=== PATIENT | male | born 1985 | race Caucasian/White ===

== ENCOUNTER 2021-05-26 14:07 | Inpatient (IN) | payer SELFPAY ==
[2021-05-26] MEDS ORDERED: ACETAMINOPHEN 500 MG TAB ONE (15:57)
--- NOTE | 2021-05-26 16:25 | RAD REPORT ---
EXAM DESCRIPTION: CT - Head Brain Wo Cont - 05/26/2021 4:12 pm CLINICAL HISTORY: headache, vomiting COMPARISON: No comparisons TECHNIQUE: Axial 5 mm thick images of the head were obtained without IV contrast. All CT scans are performed using dose optimization technique as appropriate and may include automated exposure control or mA/KV adjustment according to patient size. FINDINGS: No intracranial hemorrhage, mass, edema or shift of mid-line structures. No acute infarcti on changes seen. No abnormal extra-axial fluid collections. Ventricles are normal. Mastoid air cells and visualized portions of the paranasal sinuses are clear. No acute bony findings. IMPRESSION: Negative non-contrast CT head examination.
[2021-05-26] MEDS ORDERED: NA CHLORIDE 0.9% 1,000 ML ONE (16:27)
[2021-05-26] MEDS ORDERED: METOCLOPRAMIDE 10 MG/2mL INJ ONE (16:27)
--- NOTE | 2021-05-26 18:22 | EDPHYS ---
Physician Documentation [facility] Name: Maynor Saenz Age: 35 yrs Sex: Male : 1985 Arrival Date: 05/26/2021 Time: 14:20 Bed 15 Private MD: ED Physician Pete Suarez HPI: 05/26 15:56 This 35 yrs old Male presents to ER via Ambulatory with complaints of jmm Headache, Vomiting. 15:56 The patient complains of pain to the left temporal area. Onset: The symptoms/episode jmm began/occurred gradually, 1 day(s) ago. Associated signs and symptoms: Pertinent positives: vomiting. Headache History: The patient has had previous headaches and this one is similar to previous episodes. This is a 35-year-old male with no known chronic medical conditions presents emerge department with complaints of left-sided headache which was initially mild yesterday which developed increased intensity today along with nausea and vomiting. Patient denies diarrhea abdominal pain or cough. Historical: - Allergies: 15:27 No Known Allergies; kg - Home Meds: 15:27 None [Active]; kg - PMHx: 15:27 None; kg - PSHx: 15:27 Cholecystectomy; kg - Immunization history:: Adult Immunizations up to date, Client reports receiving the 2nd dose of the Covid vaccine, Date received: December 2020 [employer] Client reports receiving the 1st dose of the Covid vaccine, December 2020 [employer]. - Social history:: Smoking status: Patient denies any tobacco usage or history of. ROS: 15:56 Constitutional: Positive for body aches. jmm 15:56 Respiratory: Negative for cough, shortness of breath. 15:56 Abdomen/GI: Positive for nausea and vomiting, Negative for abdominal pain, diarrhea. 15:56 Neuro: Positive for headache. 15:56 All other systems are negative. Exam: 15:56 Constitutional: This is a well developed, well nourished patient who is awake, alert, jmm and in no acute distress. Head/Face: atraumatic. Eyes: EOMI, no conjunctival erythema appreciated ENT: Moist Mucus Membranes Neck: Trachea midline, Supple Chest/axilla: Normal chest wall appearance and motion. Cardiovascular: Regular rate and rhythm. No edema appreciated Respiratory: Normal respirations, no respiratory distress appreciated Abdomen/GI: Non distended, soft Back: Normal ROM Skin: General appearance color normal MS/ Extremity: Moves all extremities, no obvious deformities appreciated, no edema noted to the lower extremities Neuro: Awake and alert, normal gait Psych: Behavior is normal, Mood is normal, Patient is cooperative and pleasant 15:56 Abdomen/GI: Inspection: abdomen appears normal, Bowel sounds: normal, Palpation: abdomen is soft and non-tender, in all quadrants. Vital Signs: 15:26 BP 128 / 83; Pulse 121; Resp 20; Temp 102.8(O); Pulse Ox 98% on R/A; Weight 115.67 kg kg (R); Height 5 ft. 11 in. (180.34 cm) (R); Pain 4/10; 17:41 BP 126 / 74; Pulse 100; Resp 16 S; Temp 98.0(O); Pulse Ox 97% on R/A; iw 15:26 Body Mass Index 35.56 (115.67 kg, 180.34 cm) kg MDM: 15:40 Patient medically screened. jhon 18:20 Data reviewed: vital signs, nurses notes. Counseling: I had a detailed discussion with yokasta the patient and/or guardian regarding: the historical points, exam findings, and any diagnostic results supporting the discharge/admit diagnosis, lab results, radiology results, the need for outpatient follow up, to return to the emergency department if symptoms worsen or persist or if there are any questions or concerns that arise at home. ED course: Patient is alert nontoxic in appearance. Neck is supple. I do not suspect meningitis at this time. Patient is advised to follow-up with PCP and otherwise given strict return precautions. Patient understood and agrees to plan of care.. 23:29 ED course: I discussed the patient with Dr. Byrd who recommends observation with [facility] repeat labs. 05/26 15:31 Order name: Flu; Complete Time: 17:17 kg 05/26 16:56 Order name: SARS-COV-2 RT PCR; Complete Time: 17:17 [facility] 05/26 17:24 Order name: Day Screen Profile [facility] 05/26 17:24 Order name: Strep; Complete Time: 18:13 [facility] 05/26 17:24 Order name: CBC with Diff; Complete Time: 18:44 [facility] 05/26 17:24 Order name: CMP; Complete Time: 18:49 [facility] 05/26 17:24 Order name: Day Screen; Complete Time: 18:20 [facility] 05/26 18:15 Order name: Throat Culture [facility] 05/26 21:04 Order name: Pth,Intact; Complete Time: 23:30 [facility] 05/26 21:05 Order name: Hepatitis Panel [facility] 05/26 21:05 Order name: PT-INR; Complete Time: 23:11 [facility] 05/26 21:05 Order name: Hepatitis Panel,Acute [facility] 05/26 21:09 Order name: HIV AG/AB, 4th Gen W/ Reflex [facility] 05/26 15:56 Order name: Saline Lock; Complete Time: 16:13 [facility] 05/26 15:56 Order name: CT Head Brain wo Cont; Complete Time: 16:27 [facility] 05/26 18:50 Order name: US Abdomen Limited; Complete Time: 21:00 [facility] 05/27 03:36 Order name: Protime (+INR) [facility] 05/27 03:37 Order name: CBC with Automated Diff [facility] 05/27 04:19 Order name: Comprehensive Metabolic Panel [facility] 05/27 04:19 Order name: Lipid Profile [facility] 05/27 04:19 Order name: T4 Free [facility] 05/27 04:19 Order name: Magnesium [facility] 05/27 04:19 Order name: Thyroid Stimulating Hormone [facility] Administered Medications: 15:48 Drug: Tylenol 1000 mg Route: PO; iw 16:25 Drug: NS 0.9% 1000 ml Route: IV; Rate: 1 bolus; Site: left forearm; iw 16:25 Drug: Reglan (metoCLOPramide) 20 mg Route: IVP; Site: left forearm; iw Disposition: 05/28 08:10 Co-signature as Attending Physician, Pete Suarez MD I agree with the assessment and jhon plan of care. Disposition Summary: 05/26/21 23:30 Hospitalization Ordered Hospitalization Status: Observation jmm Condition: Stable(05/26/21 23:30) jmm Problem: new jmm Symptoms: are unchanged jmm Bed/Room Type: Standard jmm Provider: Marcelle Noel(05/27/21 00:56) jmm Location: Telemetry/MedSurg (observation)(05/27/21 10:08) bd Room Assignment: 209(05/27/21 10:08) bd Diagnosis - Acute viral hepatitis, unspecified jmm - Other infectious mononucleosis with other complication [facility] Forms: - Medication Reconciliation Form [facility] - SBAR form [facility] Signatures: Dispatcher [employer] EDMS Olga Blair Corey, MD MD cha Mickail, Joel, PA PA [facility] Kathy Rowell, RN RN iw John Luo, AUDIOPROSTHOLOGIST-C AUDIOPROSTHOLOGIST-Cla1 Jacinta Guerra, RN RN cg Yany Davila RN RN kg Corrections: (The following items were deleted from the chart) 05/26 15:55 15:32 CORONAVIRUS+MR.LAB.BRZ ordered. EDMS EDMS 18:48 18:22 Home [facility] 18:48 18:22 Stable [facility] 18:48 18:22 Infectious mononucleosis, unspecified without complication [facility] 05/27 00:56 05/26 23:30 Bryan Caballero [facility] 05/27 05:55 05/26 23:30 Telemetry/MedSurg (observation) [facility] 05/27 05:55 05/26 23:30 [facility] 05/27 10:08 05:55 [facility] ER HOLD cg bd 10:08 05:55 ERHOLD- cg bd
--- NOTE | 2021-05-26 18:22 | ER ---
Nurse's Notes [facility] Name: Maynor Saenz Age: 35 yrs Sex: Male : 1985 Arrival Date: 05/26/2021 Time: 14:20 Bed 15 Private MD: Diagnosis: Acute viral hepatitis, unspecified;Other infectious mononucleosis with other complication Presentation: 05/26 15:26 Chief complaint: Patient states: Nausea, vomiting, headache x 3 days. Coronavirus kg screen: Client denies travel out of the [place] in the last 14 days. At this time, unable to obtain information related to travel outside the [place] Client presents with at least one sign or symptom that may indicate coronavirus-19. Standard/surgical mask placed on the client. Provider contacted for isolation considerations. Ebola Screen: Patient negative for fever greater than or equal to 101.5 degrees Fahrenheit, and additional compatible Ebola Virus Disease symptoms Patient denies exposure to infectious person. Patient denies travel to an Ebola-affected area in the 21 days before illness onset. Initial Sepsis Screen: Does the patient meet any 2 criteria? No. Patient's initial sepsis screen is negative. Does the patient have a suspected source of infection? No. Patient's initial sepsis screen is negative. Risk Assessment: Do you want to hurt yourself or someone else? Patient reports no desire to harm self or others. Onset of symptoms was May 23, 2021. 15:26 Method Of Arrival: Ambulatory kg 15:26 Acuity: THO 4 kg 15:58 Acuity: THO 3 iw Triage Assessment: 15:27 Headache History: Denies prior headaches. General: Appears in no apparent distress. kg Behavior is calm, cooperative, appropriate for age, quiet. Pain: Complains of pain in Head Pain currently is 4 out of 10 on a pain scale. at worst was 6 out of 10 on a pain scale. Quality of pain is described as piercing, Pain began 2-3 days ago. Also complains of nausea. GI: Reports nausea, vomiting. Historical: - Allergies: 15:27 No Known Allergies; kg - Home Meds: 15:27 None [Active]; kg - PMHx: 15:27 None; kg - PSHx: 15:27 Cholecystectomy; kg - Immunization history:: Adult Immunizations up to date, Client reports receiving the 2nd dose of the Covid vaccine, Date received: December 2020 [employer] Client reports receiving the 1st dose of the Covid vaccine, December 2020 [employer]. - Social history:: Smoking status: Patient denies any tobacco usage or history of. Screenin:30 Abuse screen: Denies threats or abuse. Denies injuries from another. Nutritional kg screening: No deficits noted. Nutritional screening: No deficits noted. Tuberculosis screening: No symptoms or risk factors identified. Fall Risk None identified. Assessment: 16:43 Reassessment: Patient appears in no apparent distress at this time. Patient and/or iw family updated on plan of care and expected duration. Pain level reassessed. Patient is alert, oriented x 3, equal unlabored respirations, skin warm/dry/pink. Vital Signs: 15:26 BP 128 / 83; Pulse 121; Resp 20; Temp 102.8(O); Pulse Ox 98% on R/A; Weight 115.67 kg kg (R); Height 5 ft. 11 in. (180.34 cm) (R); Pain 4/10; 17:41 BP 126 / 74; Pulse 100; Resp 16 S; Temp 98.0(O); Pulse Ox 97% on R/A; iw 15:26 Body Mass Index 35.56 (115.67 kg, 180.34 cm) kg ED Course: 14:20 Patient arrived in ED. am2 15:27 Triage completed. kg 15:30 Patient has correct armband on for positive identification. kg 15:30 Antipyretic given from triage as ordered by the ER provider. Arm band placed on left kg wrist. 15:33 Gabo Santiago PA is PHCP. [facility] 15:33 Pete Suarez MD is Attending Physician. [facility] 15:33 Kathy Rowell, RN is Primary Nurse. iw 15:52 Flu Sent. kg 16:00 Inserted saline lock: 20 gauge in left forearm, using aseptic technique. Blood iw collected. 16:11 CT Head Brain wo Cont In Process Unspecified. EDMS 19:30 Primary Nurse role handed off by Kathy Rowell, RN mw2 19:31 US Abdomen Limited In Process Unspecified. EDMS 23:30 Bryan Caballero MD is Hospitalizing Provider. [facility] 05/27 00:21 Jairo Biggs, RN is Primary Nurse. em 00:21 No provider procedures requiring assistance completed. Patient admitted, IV remains in em place. 00:56 Marcelle Noel MD is Hospitalizing Provider. [facility] 08:37 Primary Nurse role handed off by Jairo Biggs RN Administered Medications: 05/26 15:48 Drug: Tylenol 1000 mg Route: PO; iw 16:25 Drug: NS 0.9% 1000 ml Route: IV; Rate: 1 bolus; Site: left forearm; 16:25 Drug: Reglan (metoCLOPramide) 20 mg Route: IVP; Site: left forearm; Outcome: 18:22 Discharge ordered by MD. [facility] 23:30 Decision to Hospitalize by Provider. [facility] 05/27 00:21 Admitted to ER Hold. Please see [facility] for further documentation. em Condition: stable Instructed on the need for admit, Demonstrated understanding of instructions. 10:50 Patient left the ED. ll1 Signatures: Dispatcher [employer] EDAgnieszka Thrasher RN RN Gabo Santiago PA PA [facility] Jairo Biggs, RN TALA Kathy Rowell RN RN Chery Reed 2 Al Puri 2 Do Garcia RN RN [facility] Yany Davila RN RN kg Corrections: (The following items were deleted from the chart) 05/26 15:55 15:52 CORONAVIRUS+MRIZABELA drawn and sent. kg [facility] 20:17 17:41 Temp 98.0F Oral; [facility]
[2021-05-26 18:31] LABS: Absolute Lymphocytes (CBC) 1.2 K/uL (0.7-4.9); Basophils % 0.2 % (0-1.3); Hematocrit 44.7 % (39.6-49.0); Lymphocytes % 10.1 % (15.3-44.8); MPV 8.1 fL (7.6-11.3); RBC Red Blood Cell Count 5.32 M/uL (4.33-5.43)
[2021-05-26 18:44] LABS: ALT/SGPT 272 U/L (12-78); Albumin 3.2 g/dL (3.4-5.0); Alkaline Phosphatase 342 U/L (45-117); BUN Blood Urea Nitrogen 8 mg/dL (7-18); Bicarbonate 22 mmol/L (21-32); Glucose Level 101 mg/dL (74-106); Protein, Total 8.2 g/dL (6.4-8.2); Sodium Level 137 mmol/L (136-145)
[2021-05-26 18:46] LABS: AST/SGOT 106 U/L (15-37); Potassium 3.6 mmol/L (3.5-5.1)
[2021-05-26 18:47] LABS: Bilirubin Total 6.4 mg/dL (0.2-1.0)
--- NOTE | 2021-05-26 20:56 | RAD REPORT ---
EXAM DESCRIPTION: US - Abdomen Exam Limited - 05/26/2021 7:32 pm CLINICAL HISTORY: vomiting, elevated bili and lfts COMPARISON: No comparisons FINDINGS: Gallbladder is absent. No mass or abnormal fluid collection in the gallbladder fossa. Comm on bile duct was difficult to visualize. No intrahepatic biliary tree dilatation suspected. No focal liver lesion identified. Portal vein was unremarkable. No abnormal biliary tree dilatation identifiab le. Common bile duct, as visualized, is not outside of normal range for post cholecystectomy status. Fatty infiltration of the liver is suspected. IMPRESSION: Status post cholecystectomy with no abnormal biliary tree dilatation identifiable.
[2021-05-26 23:05] LABS: Protime INR 1.23
--- NOTE | 2021-05-26 23:43 | P.HP ---
Certification for Inpatient Patient admitted to: Inpatient With expected LOS: >2 Midnights Patient will require the following post-hospital care: None Practitioner: I am a practitioner with admitting privileges, knowledge of patient current condition, hospital course, and medical plan of care. Services: Services provided to patient in accordance with Admission requirements found in Title 42 Section 412.3 of the Code of Federal Regulations <John Luo Tera Pace - Last Filed: 05/26/21 23:39> Patient History Date of Service: 05/26/21 Reason for admission: Acute hepatitis History of Present Illness: 35-year-old male with no significant past medical history presents emergency department for nausea, headache, fevers. Patient reports symptoms began on Thursday. Patient was evaluated in the emergency department, labs were significant for white blood cell count 11 point 9T bili 6.4 AST 106 ALT 272 alk phos 342 mono positive Covid negative, abdominal ultrasound demonstrates mildly enlarged spleen per laboratory mechanical technician, previous cholecystectomy without no other acute findings. Case was discussed with gastroenterology by ED provider who prefers admission for further evaluation including EBV IgG/IgM and hepatitis panel. Continue with IV fluids. - Past Medical/Surgical History -: None -: Cholecystectomy Psychosocial/ Personal History: Employed as a weight master lives with and children - Family History Father History Unknown: Yes Notes: Adopted unknown family history - Social History Alcohol use: No CD- Drugs: No Caffeine use: Yes Place of Residence: Home <John Luo Tera Pace - Last Filed: 05/26/21 23:39> Date of Service: 05/26/21 <Marcelle Noel - Last Filed: 06/03/21 02:49> Allergies No Known Allergies Allergy (Unverified 05/26/21 21:08) Review of Systems 10-point ROS is otherwise unremarkable General: Fever, Chills, Weakness, Malaise Gastrointestinal: Nausea <John Luo - Last Filed: 05/26/21 23:39> Physical Examination - Physical Exam General: Alert, In no apparent distress, Oriented x3 HEENT: Atraumatic, PERRLA, Mucous membr. moist/pink, EOMI, Sclerae nonicteric Neck: Supple, 2+ carotid pulse no bruit, No LAD, Without JVD or thyroid abnormality Respiratory: Clear to auscultation bilaterally, Normal air movement Cardiovascular: Regular rate/rhythm, Normal S1 S2 Gastrointestinal: Normal bowel sounds, No tenderness Musculoskeletal: No tenderness Integumentary: No rashes Neurological: Normal speech, Normal strength at 5/5 x4 extr, Normal tone, Normal affect - Studies Laboratory Data (last 24 hrs) 05/26/21 22:25: PT 14.2 H, INR 1.23 05/26/21 17:50: Sodium 137, Potassium 3.6, BUN 8, Creatinine 0.84, Glucose 101, Total Bilirubin 6.4 H*, AST 106 H, ALT 272 H, Alkaline Phosphatase 342 H 05/26/21 17:50: WBC 11.90 H, Hgb 15.0, Hct 44.7, Plt Count 313 Microbiology Data (last 24 hrs): 05/26/21 17:50 Throat Group A Streptococcus Rapid Screen - Final 05/26/21 15:20 Nasopharnyx Influenza Type A Antigen Screen - Final 05/26/21 15:20 Nasopharnyx Influenza Type B Antigen Screen - Final <John Luo - Last Filed: 05/26/21 23:39> Assessment and Plan - Plan Assessment: Acute hepatitis secondary to mononucleosis Plan: Acute hepatitis secondary to mononucleosis: Hepatitis, HIV panel pending, EBV IgG/IgM pending gastroenterology consulted continue with daily chemistries ultrasound negative for any acute findings did demonstrate mild enlarged spleen per laboratory mechanical technician. Appreciate further input from gastroenterology. DVT PPX: Lovenox Code status: Full Discharge Plan: Home Plan to discharge in: 48 Hours - Advance Directives Does patient have a Living Will: No Does patient have a Durable POA for Healthcare: No - Code Status/Comfort Care Code Status Assessed: Yes (Full code) Critical Care: No Time Spent Managing Pts Care (In Minutes): 55 <John Luo - Last Filed: 05/26/21 23:39> - Problems (Diagnosis) (1) Infectious mononucleosis Status: Acute (2) Acute hepatitis Status: Acute <Marcelle Noel - Last Filed: 06/03/21 02:49> Date of Service: 05/26/21 Subjective Agree with plan of care as mentioned above Review of Systems 10-point ROS is otherwise unremarkable Physical Examination - Vital Signs Reviewed - Physical Exam General: Alert, In no apparent distress, Oriented x3 Respiratory: Clear to auscultation bilaterally, Normal air movement Cardiovascular: Regular rate/rhythm, Normal S1 S2 Gastrointestinal: Normal bowel sounds, No tenderness Musculoskeletal: No tenderness Integumentary: No rashes Neurological: Normal speech, Normal tone, Normal affect Lymphatics: No axilla or inguinal lymphadenopathy Assessment & Plan - Problems (Diagnosis) (1) Infectious mononucleosis Status: Acute (2) Acute hepatitis Status: Acute - Plan Continue with plan of care as mentioned below: 1. Continue with IV hydration 2. Supportive care 3. Continue with pain control 4. Diet as tolerated 5. Outpatient GI follow-up 6. Outpatient labs 7. GI and DVT prophylaxis Discharge Plan: Home Plan to discharge in: Greater than 2 days - Advance Directives Does patient have a Living Will: No Does patient have a Durable POA for Healthcare: No - Code Status/Comfort Care Code Status Assessed: Yes Code Status: Full Code Critical Care: No Time Spent Managing PTS Care (In Minutes): 35 <Marcelle Noel - Last Filed: 06/03/21 02:49>
[2021-05-27] MEDS ORDERED: NA CHLORIDE 0.9% 1,000 ML IV SCH (02:13)
[2021-05-27] MEDS ORDERED: ONDANSETRON 4 MG/2 ML VIAL IV PRN (02:13)
[2021-05-27 03:27] LABS: Absolute Lymphocytes (CBC) 1.1 K/uL (0.7-4.9); Basophils % 0.3 % (0-1.3); Hematocrit 41.8 % (39.6-49.0); Lymphocytes % 12.5 % (15.3-44.8); MPV 7.6 fL (7.6-11.3); RBC Red Blood Cell Count 4.96 M/uL (4.33-5.43)
[2021-05-27 03:29] LABS: Protime INR 1.24
[2021-05-27 04:13] LABS: ALT/SGPT 235 U/L (12-78); AST/SGOT 80 U/L (15-37); Albumin 2.8 g/dL (3.4-5.0); Alkaline Phosphatase 319 U/L (45-117); BUN Blood Urea Nitrogen 7 mg/dL (7-18); Bicarbonate 30 mmol/L (21-32); Glucose Level 101 mg/dL (74-106); HDL Cholesterol 16 mg/dL (40-60); LDL Cholesterol, Calculated 108 (<130); Potassium 3.5 mmol/L (3.5-5.1); Protein, Total 7.7 g/dL (6.4-8.2); Sodium Level 138 mmol/L (136-145); Thyroid Stimulating Hormone 0.504 uIU/mL (0.360-3.740)
[2021-05-27 04:19] LABS: Bilirubin Total 5.6 mg/dL (0.2-1.0)
[2021-05-27] MEDS ORDERED: NA CHLORIDE 0.9% 1,000 ML ONE ×2 (04:57→07:54)
[2021-05-27 07:33] VITALS: BMI 35.5
[2021-05-27] MEDS ORDERED: ENOXAPARIN 40 MG/0.4 ML SQ ONE (07:53)
[2021-05-27] MEDS ORDERED: ENOXAPARIN 40 MG/0.4 ML SQ SCH (09:00)
[2021-05-27 11:09] VITALS: O2SAT 97
--- NOTE | 2021-05-27 11:45 | P.PN ---
Subjective Date of Service: 05/27/21 LFTs still significantly elevated. Patient with acute hepatitis secondary to mononucleosis. EBV titers pending. However, patient is wanting to go home and will reassess. Review of Systems 10-point ROS is otherwise unremarkable Physical Examination - Vital Signs Temperature: 99.2 F Blood Pressure: 110/76 Pulse: 80 Respirations: 16 Pulse Ox (%): 98 - Physical Exam General: Alert, In no apparent distress, Oriented x3 Respiratory: Clear to auscultation bilaterally, Normal air movement Cardiovascular: Regular rate/rhythm, Normal S1 S2 Gastrointestinal: Normal bowel sounds, No tenderness Musculoskeletal: No tenderness Integumentary: No rashes Neurological: Normal speech, Normal tone, Normal affect Lymphatics: No axilla or inguinal lymphadenopathy - Studies Laboratory Data (last 24 hrs) 05/26/21 22:25: PT 14.2 H, INR 1.23 05/26/21 17:50: Sodium 137, Potassium 3.6, BUN 8, Creatinine 0.84, Glucose 101, Total Bilirubin 6.4 H*, AST 106 H, ALT 272 H, Alkaline Phosphatase 342 H 05/26/21 17:50: WBC 11.90 H, Hgb 15.0, Hct 44.7, Plt Count 313 Microbiology Data (last 24 hrs): 05/26/21 17:50 Throat Group A Streptococcus Rapid Screen - Final 05/26/21 15:20 Nasopharnyx Influenza Type A Antigen Screen - Final 05/26/21 15:20 Nasopharnyx Influenza Type B Antigen Screen - Final Medications List Reviewed: Yes Assessment & Plan - Problems (Diagnosis) (1) Infectious mononucleosis Status: Acute (2) Acute hepatitis Status: Acute - Plan 1. Continue with IV hydration 2. Supportive care 3. Continue with pain control 4. Diet as tolerated 5. Outpatient GI follow-up 6. Outpatient labs 7. GI and DVT prophylaxis Discharge Plan: Home Plan to discharge in: Greater than 2 days - Advance Directives Does patient have a Living Will: No Does patient have a Durable POA for Healthcare: No - Code Status/Comfort Care Code Status Assessed: Yes Code Status: Full Code Critical Care: No Time Spent Managing PTS Care (In Minutes): 35
[2021-05-27 17:37] LABS: ALT/SGPT 224 U/L (12-78); AST/SGOT 71 U/L (15-37); Albumin 3.1 g/dL (3.4-5.0); Alkaline Phosphatase 352 U/L (45-117); BUN Blood Urea Nitrogen 7 mg/dL (7-18); Bicarbonate 29 mmol/L (21-32); Bilirubin Total 3.6 mg/dL (0.2-1.0); Glucose Level 79 mg/dL (74-106); Potassium 3.5 mmol/L (3.5-5.1); Protein, Total 8.6 g/dL (6.4-8.2); Sodium Level 137 mmol/L (136-145)
[2021-05-29 16:24] LABS: HIV AG/AB 4TH GEN Non-reactive (Non-reactive)
[2021-05-29 19:01] LABS: HBsAG Nonreactive (Nonreactive)
[2021-06-03 02:49] VITALS: BP 110/76; TEMP 99.2
--- NOTE | 2021-06-03 02:50 | P.DS ---
Discharge Date: 05/27/21 Disposition: ROUTINE DISCHARGE Discharge Condition: GOOD Reason for Admission: Acute hepatitis - Problems (1) Infectious mononucleosis Status: Acute (2) Acute hepatitis Status: Acute Brief History of Present Illness: 35-year-old male with no significant past medical history presents emergency department for nausea, headache, fevers. Patient reports symptoms began on Thursday. Patient was evaluated in the emergency department, labs were significant for white blood cell count 11 point 9T bili 6.4 AST 106 ALT 272 alk phos 342 mono positive Covid negative, abdominal ultrasound demonstrates mildly enlarged spleen per radiology nurse, previous cholecystectomy without no other acute findings. Case was discussed with gastroenterology by ED provider who prefers admission for further evaluation including EBV IgG/IgM and hepatitis panel. Continue with IV fluids. Hospital Course: Patient is clinically doing well. Patient without no new complaints. Clinically, patient is stable for discharge. Patient will need to follow with Gastroenterology and repeat liver enzymes. Vital Signs/Physical Exam: Temp Pulse Resp BP Pulse Ox 99.2 F 80 16 110/76 98 06/03/21 02:48 06/03/21 02:48 06/03/21 02:48 06/03/21 02:48 06/03/21 02:48 General: Alert, In no apparent distress, Oriented x3 Laboratory Data at Discharge: WBC Cancelled 05/28/21 05:00 Hgb Cancelled 05/28/21 05:00 Hct Cancelled 05/28/21 05:00 Plt Count Cancelled 05/28/21 05:00 PT Cancelled 05/28/21 05:00 INR Cancelled 05/28/21 05:00 Sodium 137 mmol/L (136-145) 05/27/21 17:11 Potassium 3.5 mmol/L (3.5-5.1) 05/27/21 17:11 BUN 7 mg/dL (7-18) 05/27/21 17:11 Creatinine 0.75 mg/dL (0.55-1.3) 05/27/21 17:11 Glucose 79 mg/dL (74-106) 05/27/21 17:11 Magnesium Cancelled 05/28/21 05:00 Total Bilirubin 3.6 mg/dL (0.2-1.0) H 05/27/21 17:11 AST 71 U/L (15-37) H 05/27/21 17:11 ALT 224 U/L (12-78) H 05/27/21 17:11 Alkaline Phosphatase 352 U/L (45-117) H 05/27/21 17:11 Triglycerides 109 mg/dL (<150) 05/27/21 02:58 Cholesterol 146 mg/dL (<200) 05/27/21 02:58 HDL Cholesterol 16 mg/dL (40-60) L 05/27/21 02:58 Cholesterol/HDL Ratio 9.13 05/27/21 02:58 Physician Discharge Instructions: OK TO DC IV AND DC HOME FOLLOW-UP WITH PRIMARY CARE PROVIDER IN 1-2 WEEKS FOLLOW-UP WITH Gastroenterology IN 1-2 WEEKS RETURN TO THE ER IF symptoms worsen CALL or TEXT DR. APARICIO AT [phone] IF ANY QUESTIONS REGARDING HOSPITAL STAY. PLEASE CALL THE FLOOR AT [phone] IF ANY MEDICATION OR NURSING QUESTIONS. Diet: Regular Activity: Fall precautions Followup: NONE,NONE [Primary Care Provider] - Aayush Schwartz MD [ASSOCIATE-ACTIVE - CAN ADMIT] - Time spent managing pt's care (in minutes): 35
== END 2021-05-27 19:35 | disposition home or self-care (01) | DRG 866 ==
LOC: ER 14:07 → ERHOLD 23:24 → 2ND 05-27 10:37
PROVIDERS: ADMIT Hospitalist; ATTEND Hospitalist
DX: B27.89 Other infectious mononucleosis with other complication (principal); B17.9 Acute viral hepatitis, unspecified; Z20.822 Contact with and (suspected) exposure to COVID-19
CPT/HCPCS: 36415; 70450; 76705; 80053; 80061; 80074; 83735; 83970; 84439; 84443; 85025; 85610; 86308; 86664; 86665; 87070; 87081; 87389; 87804; 96374; 99285; J1650; J2765; J7030; U0003

== ENCOUNTER 2021-06-10 17:35 | Emergency (ER) | payer SELFPAY ==
--- NOTE | 2021-06-10 23:08 | ER ---
Nurse's Notes [facility] Name: Maynor Saenz Age: 35 yrs Sex: Male : 1985 Arrival Date: 06/10/2021 Time: 17:42 Bed External Waiting [facility] MD: Diagnosis: Presentation: 06/10 18:04 Chief complaint: Patient states: Diagnosed with mono about 2 weeks ago. Still has high ll1 fever, fatigue, and bad symptoms. Fever 105.4 at home. No N/V/D. No appetite still. Coronavirus screen: Vaccine status: Patient reports receiving the 2nd dose of the covid vaccine. Date March 14, 2021 Client denies travel out of the [place] in the last 14 days. Ebola Screen: Patient denies travel to an Ebola-affected area in the 21 days before illness onset. No acute neurological deficit is noted. Initial Sepsis Screen: Does the patient meet any 2 criteria? No. Patient's initial sepsis screen is negative. Does the patient have a suspected source of infection? No. Patient's initial sepsis screen is negative. Risk Assessment: Do you want to hurt yourself or someone else? Patient reports no desire to harm self or others. Onset of symptoms was May 26, 2021. 18:04 Method Of Arrival: Ambulatory ll1 18:04 Acuity: THO 3 ll1 Stroke Activation: Symptom onset > 6 hours Physician: Stroke Attending; Name: ; Notified At: ; Arrived At: Physician: Chief Stroke Resident; Name: ; Notified At: ; Arrived At: Physician: Stroke Resident; Name: ; Notified At: ; Arrived At: Physician: ED Attending; Name: ; Notified At: ; Arrived At: Physician: ED Resident; Name: ; Notified At: ; Arrived At: Historical: - Allergies: 18:09 No Known Allergies; ll1 - PMHx: 18:09 mono; ll1 - PSHx: 18:09 Cholecystectomy; ll1 - Immunization history:: Client reports receiving the 2nd dose of the Covid vaccine, Flu vaccine is up to date. Last tetanus immunization: up to date. - Social history:: Smoking status: Smoking status: Patient denies any tobacco usage or history of. Vital Signs: 18:04 BP 106 / 68; Resp 20; Temp 103.0; Weight 112.94 kg; Height 5 ft. 11 in. (180.34 cm); ll1 Pain 0/10; 18:11 Pulse 126; Pulse Ox 96% ; ll1 20:47 BP 117 / 74; Pulse 119; Resp 20; Pulse Ox 100% ; kg 18:04 Body Mass Index 34.73 (112.94 kg, 180.34 cm) ll1 ED Course: 17:42 Patient arrived in ED. as 18:04 Arm band placed on. ll1 18:09 Triage completed. ll1 Administered Medications: No medications were administered Outcome: 23:08 Patient left the ED. kg Signatures: Regina Putnam Lynsay, RN RN ll1 Yany Davila RN RN kg
[2021-06-10 23:17] VITALS: TEMP 103
[2021-06-10 23:20] VITALS: BP 117/74; O2SAT 100
== END 2021-06-10 23:08 | disposition left against medical advice (07) ==
LOC: ER 17:35
DX: Z53.21 Procedure and treatment not carried out due to patient leaving prior to being seen by health care provider (principal)
CPT/HCPCS: 99281

== ENCOUNTER 2021-08-02 17:54 | Emergency (ER) | payer SELFPAY ==
[2021-08-02] MEDS ORDERED: NA CHLORIDE 0.9% 3,000 ML ONE (18:55)
[2021-08-02 18:57] LABS: Absolute Lymphocytes (CBC) 1.4 K/uL (0.7-4.9); Basophils % 0.5 % (0-1.3); Hematocrit 31.9 % (39.6-49.0); Lymphocytes % 6.1 % (15.3-44.8); MPV 8.2 fL (7.6-11.3); Protime INR 1.78; RBC Red Blood Cell Count 3.99 M/uL (4.33-5.43)
[2021-08-02] MEDS ORDERED: CEFTRIAXONE 1000 MG/VIAL ONE (19:12)
[2021-08-02 19:16] LABS: ALT/SGPT 29 U/L (12-78); AST/SGOT 57 U/L (15-37); Albumin 1.5 g/dL (3.4-5.0); Alkaline Phosphatase 411 U/L (45-117); BUN Blood Urea Nitrogen 16 mg/dL (7-18); Bicarbonate 34 mmol/L (21-32); Bilirubin Direct 1.2 mg/dL (0-0.2); Bilirubin Total 1.7 mg/dL (0.2-1.0); CKMB Creatine Kinase MB < 1.0 ng/mL (1.0-3.6); Creatine Phosphokinase 30 U/L (39-308); Glucose Level 132 mg/dL (74-106); Lipase 40 U/L (73-393); Protein, Total 8.2 g/dL (6.4-8.2); Sodium Level 135 mmol/L (136-145); Troponin (Emerg Dept Use Only) < 0.02 ng/mL (0.0-0.045)
[2021-08-02 19:17] LABS: Potassium 2.3 mmol/L (3.5-5.1)
--- NOTE | 2021-08-02 19:55 | RAD REPORT ---
EXAM DESCRIPTION: RAD - Chest Single View - 08/02/2021 6:45 pm CLINICAL HISTORY: MD discretion, shortness of breath COMPARISON: None TECHNIQUE: AP portable chest image was obtained 08/02/2021 6:45 pm . FINDINGS: Lung volumes are low but clear of mass or consolidation. Body habitus and shallow inspirat ion accentuate the interstitial pattern. Heart and vasculature are normal. No measurable pleural effu sixto and no pneumothorax. No acute bony abnormality seen. No acute aortic findings suspected. IMPRESSION: No acute cardiopulmonary process.
[2021-08-02 19:57] LABS: Blood Morphology Comment NOT SEEN (NOT SEEN); Platelet Estimate INCR; Platelets, Giant PRESENT
[2021-08-02] MEDS ORDERED: ACETAMINOPHEN 325 MG TABLET ONE (20:27)
[2021-08-02] MEDS ORDERED: KCL 20 MEQ/100 mL IVPB 20 MEQ/100 ML BAG IV ONE (20:27)
[2021-08-02] MEDS ORDERED: NA CHLORIDE 0.9% 500 ML ONE (20:31)
--- NOTE | 2021-08-02 20:43 | RAD REPORT ---
EXAM DESCRIPTION: CT - Abdomen Pelvis W Contrast - 08/02/2021 8:00 pm CLINICAL HISTORY: ABD PAIN COMPARISON: Abdomen Exam Limited dated 05/26/2021; Chest For Pe Angio dated 08/02/2021 TECHNIQUE: Biphasic, helical CT imaging of the abdomen and pelvis was performed following 100 ml non -ionic IV contrast. Axial 10 minutes delayed images also performed. No oral contrast administered. All CT scans are performed using dose optimization technique as appropriate and may include automated exposure control or mA/KV adjustment according to patient size. FINDINGS: No suspicious findings in the lung bases. The liver is grossly abnormal. Overall liver size is prominent. There is a very large [address] area of abnormally diminished attenuation occupying the majority of the left hepatic lobe in the anterior portion of the right hepatic lobe. This may be a single large mass or the confluence of nume wei low-density masses. An additional 4 centimeter low-density area is present in the posteromedial right lobe. This liver abnormality was not evident on May 26 ultrasound study. There is little if any identifiable enhancement within or along the periphery of the liver mass. The mass partially fill s in on 10 minutes delayed imaging. Cholecystectomy clips are present. No abnormal biliary tree dilat ation identified. No pancreatic mass or peripancreatic acute finding seen. There is an elongated tubular structure in t he third and fourth portions of the duodenum. This is possibly a biliary stent that has migrated into the duodenum. There may be a small component still within the distal common bile duct. Symmetric renal function is seen with no hydronephrosis or suspicious renal mass. No pyelonephritis o r acute parenchymal process. Urinary bladder is fully contracted. No adrenal abnormalities. No dilated bowel loops or bowel wall thickening. No acute GI findings seen. No free air or pneumatosi s. Trace amount of free intraperitoneal fluid is present. No hernia, mass or bulky lymphadenopathy. No suspicious bony findings. IMPRESSION: Grossly abnormal liver with a large 18 x 10 cm area of abnormal attenuation filling most of the left lobe and anterior right lobe of the liver. Gallbladder is absent and the biliary tree is not abnormally dilated. There appears be an old biliary stent in the third and fourth portions of the duodenum. Small portion may or many neck within the bi liary tree. No similar mass visible on the May ultrasound study. Hepatocellular carcinoma or cholangiocarcinom a would be differential considerations. Findings are not sufficient for giant hemangioma etiology con firmation. Large complex of liver abscesses unlikely.
--- NOTE | 2021-08-02 20:45 | RAD REPORT ---
EXAM DESCRIPTION: CT - Chest For Pe Angio - 08/02/2021 8:00 pm CLINICAL HISTORY: SOB COMPARISON: No comparisons TECHNIQUE: Dynamically enhanced 2 mm thick images of the chest were obtained during administration o f approximately 150mL Isovue 370 IV contrast. Coronal and oblique MIP reconstruction images were gene rated and reviewed. Exam utilizes a protocol to evaluate the pulmonary arterial tree. All CT scans are performed using dose optimization technique as appropriate and may include automated exposure control or mA/KV adjustment according to patient size. FINDINGS: No pulmonary emboli are identified. The aorta as imaged shows no acute or suspicious finding. No pericardial thickening or effusion. No infiltrate or mass in the lung parenchyma. No pleural effusion or pleural thickening. No mediastinal or hilar suspicious masses. No chest wall masses or abnormal axillary lymphadenopathy. Limited upper abdomen imaging shows very large liver lesion. This is detailed in separate CT abdomen pelvis report. IMPRESSION: No pulmonary emboli identified. No other significant or suspicious chest findings.
--- NOTE | 2021-08-02 20:46 | RAD REPORT ---
EXAM DESCRIPTION: CT - Head Brain Wo Cont - 08/02/2021 8:00 pm CLINICAL HISTORY: Near syncope COMPARISON: Head Brain Wo Cont dated 05/26/2021 TECHNIQUE: Axial 5 mm thick images of the head were obtained without IV contrast. All CT scans are performed using dose optimization technique as appropriate and may include automated exposure control or mA/KV adjustment according to patient size. FINDINGS: No intracranial hemorrhage, mass, edema or shift of mid-line structures. No acute infarcti on changes seen. No abnormal extra-axial fluid collections. Ventricles are normal. Mastoid air cells and visualized portions of the paranasal sinuses are clear. No acute bony findings. No significant change comparison. IMPRESSION: Negative non-contrast CT head examination.
[2021-08-02] MEDS ORDERED: VANCOMYCIN 1 GM/VIAL ONE (22:00)
[2021-08-02] MEDS ORDERED: NA CHLORIDE 0.9% 250 ML ONE (22:01)
--- NOTE | 2021-08-02 22:50 | EDPHYS ---
Physician Documentation [facility] Name: Maynor Saenz Age: 35 yrs Sex: Male : 1985 Arrival Date: 08/02/2021 Time: 17:55 Bed 7 Private MD: ED Physician Missael Mistry HPI: 08/02 18:16 This 35 yrs old Male presents to ER via Wheelchair with complaints of ma2 Shortness Of Breath, Weakness. 18:16 The patient has shortness of breath at rest. Onset: The symptoms/episode began/occurred ma2 gradually, 1 month(s) ago. Associated signs and symptoms: Pertinent positives: Pertinent negatives: productive cough, dizziness, hemoptysis, loss of consciousness, numbness in extremities. Severity of symptoms: At their worst the symptoms were moderate in the emergency department the symptoms are unchanged. The patient has not experienced similar symptoms in the past. had multiple syncopies today, has been having weakness, sob and decrease po intake for a month, diagnosed with mono neucleosis . Historical: - Allergies: 18:01 No Known Allergies; ll1 - Home Meds: 20:54 None [Active]; df1 - PMHx: 18:01 mono; ll1 - PSHx: 18:01 Cholecystectomy; ll1 - Immunization history:: Client reports receiving the 2nd dose of the Covid vaccine. - Social history:: Smoking status: Patient denies any tobacco usage or history of. - Family history:: not pertinent. ROS: 18:16 Constitutional: Negative for fever, chills, and weight loss. ma2 18:16 All other systems are negative. Exam: 18:16 Constitutional: This is a well developed, awake, alert, however looks dehydrated and ma2 weak Head/Face: Normocephalic, atraumatic. Eyes: Pupils equal round and reactive to light, extra-ocular motions intact. Lids and lashes normal. Conjunctiva and sclera are non-icteric and not injected. Cornea within normal limits. Periorbital areas with no swelling, redness, or edema. ENT: Nares patent. No nasal discharge, no septal abnormalities noted. Tympanic membranes are normal and external auditory canals are clear. Oropharynx with no redness, swelling, or masses, exudates, or evidence of obstruction, uvula midline. Mucous membranes moist. Neck: Trachea midline, no thyromegaly or masses palpated, and no cervical lymphadenopathy. Supple, full range of motion without nuchal rigidity, or vertebral point tenderness. No Meningismus. Chest/axilla: Normal chest wall appearance and motion. Nontender with no deformity. No lesions are appreciated. Cardiovascular: Regular rate and rhythm with a normal S1 and S2. No gallops, murmurs, or rubs. Normal PMI, no JVD. No pulse deficits. Respiratory: Lungs have equal breath sounds bilaterally, clear to auscultation and percussion. No rales, rhonchi or wheezes noted. No increased work of breathing, no retractions or nasal flaring. Abdomen/GI: diffusely tender, with normal bowel sounds. No distension or tympany. No guarding or rebound. Back: No spinal tenderness. No costovertebral tenderness. Full range of motion. Skin: Warm, dry with normal turgor. Normal color with no rashes, no lesions, and no evidence of cellulitis. MS/ Extremity: Pulses equal, no cyanosis. Neurovascular intact. Full, normal range of motion. Neuro: Awake and alert, GCS 15, oriented to person, place, time, and situation. Cranial nerves II-XII grossly intact. Motor strength 5/5 in all extremities. Sensory grossly intact. Cerebellar exam normal. Normal gait. Vital Signs: 17:58 Pulse 109; Resp 24; Temp 97.8; Pulse Ox 100% ; Weight 102.06 kg; Height 5 ft. 10 in. ll1 (177.80 cm); Pain 7/10; 18:01 BP 87 / 50; ll1 18:53 BP 111 / 68; Pulse 109; Resp 26; Pulse Ox 97% on 2 lpm NC; ap3 21:18 BP 100 / 54; Pulse 99; Resp 24; Temp 97.7(O); Pulse Ox 97% on 2 lpm NC; df1 17:58 Body Mass Index 32.28 (102.06 kg, 177.80 cm) ll1 MDM: 18:16 Patient medically screened. ma2 18:16 Differential diagnosis: Anemia asthma, pneumonia, reactive airway disease, Sepsis. ma2 22:47 Data reviewed: vital signs, nurses notes, EMS record, lab test result(s), amylase and mh7 lipase, cardiac enzymes, CBC, electrolytes, urinalysis, EKG, radiologic studies, CT scan, plain films. Data interpreted: Pulse oximetry: on room air is 97 %. Interpretation: normal. Counseling: I had a detailed discussion with the patient and/or guardian regarding: the historical points, exam findings, and any diagnostic results supporting the discharge/admit diagnosis, lab results, radiology results, the need to transfer to another facility, for higher level of care, [facility] does not immediately have the required specialist. Response to treatment: the patient's symptoms have markedly improved after treatment. 22:47 Physician consultation: Anuel Tolliver MD after a discussion of the case, a recommendation [facility] for transfer for higher level of care is made. 08/02 18:04 Order name: Basic Metabolic Panel; Complete Time: 19:19 ma2 08/02 18:04 Order name: CBC with Diff; Complete Time: 20:18 ma2 08/02 18:04 Order name: CPK; Complete Time: 19:19 ma2 08/02 18:04 Order name: Ckmb; Complete Time: 19:19 ma2 08/02 18:04 Order name: Hepatic Function; Complete Time: 19:19 ma2 08/02 18:04 Order name: Lipase; Complete Time: 19:19 ma2 08/02 18:04 Order name: Magnesium; Complete Time: 19:19 ma2 08/02 18:04 Order name: Protime (+inr); Complete Time: 19:29 ma2 08/02 18:04 Order name: Ptt, Activated; Complete Time: :29 ma2 08/02 18:04 Order name: Troponin (emerg Dept Use Only); Complete Time: 19:19 ma2 08/02 18:14 Order name: Amylase, Serum aa08/02 18:14 Order name: Blood Culture Adult (2) aa08/02 18:14 Order name: Lactate; Complete Time: 19:19 aa5 08/02 18:14 Order name: Procalcitonin; Complete Time: 19:50 aa5 08/02 18:14 Order name: Chest Single View XRAY; Complete Time: 20:18 aa5 08/02 18:14 Order name: Amylase; Complete Time: 19:13 EDMS 08/02 18:14 Order name: Blood Culture EDWI 08/02 18:38 Order name: Glucose, Ancillary Testing; Complete Time: 19:13 EDMS 08/02 19:17 Order name: COVID-19 SARS RT PCR (Document "Date of Onset" if Symptomatic); Complete aa5 Time: 20:58 08/02 19:56 Order name: Manual Differential; Complete Time: 20:18 EDMS 08/02 18:04 Order name: EKG; Complete Time: 18:05 ma2 08/02 18:04 Order name: Cardiac monitoring; Complete Time: 18:08 pr2 08/02 18:04 Order name: EKG - Nurse/Tech; Complete Time: 19:03 ma2 08/02 18:04 Order name: IV Saline Lock; Complete Time: 18:36 ma2 08/02 18:04 Order name: Labs collected and sent; Complete Time: 18:36 ma2 08/02 18:04 Order name: NPO; Complete Time: 18:08 ma2 08/02 18:04 Order name: O2 Per Protocol; Complete Time: 18:08 pr2 08/02 18:04 Order name: O2 Sat Monitoring; Complete Time: 18:08 pr2 08/02 18:15 Order name: Accucheck; Complete Time: 18:35 ma2 08/02 18:15 Order name: IV Saline Lock - Large Bore; Complete Time: 18:35 ma2 08/02 18:15 Order name: CT Abd/Pelvis - IV Contrast Only; Complete Time: 21:18 ma2 08/02 19:27 Order name: CT Head Brain wo Cont; Complete Time: 20:58 mh7 08/02 19:31 Order name: CT Chest For PE Angio; Complete Time: 20:58 mh7 Administered Medications: 18:33 Drug: NS 0.9% 1000 ml Route: IV; Rate: 1 bolus; Site: left antecubital; ap3 18:34 Drug: NS 0.9% 2000 ml Route: IV; Rate: 1 bolus; Site: right antecubital; ap3 18:50 Drug: Rocephin (cefTRIAXone) 1 grams Route: IV; Rate: calculated rate; Site: left ap3 antecubital; 21:45 Follow up: IV Status: Completed infusion df1 20:30 Drug: Tylenol 650 mg Route: PO; df1 21:44 Follow up: Response: Temperature is decreased df1 20:31 Drug: Potassium Chloride 20 mEq Route: IV; Rate: per protocol; Site: right antecubital; df1 21:44 Drug: vancoMYCIN 1 grams Route: IVPB; Infused Over: 2 hrs; Site: left antecubital; df1 08/03 00:12 Follow up: IV Status: Completed infusion; IV Intake: 200ml df1 00:12 Not Given (pt transferedd): Potassium Chloride 20 mEq IV at per protocol once; df1 administer over 1-2 hours Disposition Summary: 08/02/21 22:49 Transfer Ordered Transfer Location: [place] [id number] Reason: Higher level of care mh7 Condition: Stable mh7 Problem: new mh7 Symptoms: have improved mh7 Accepting Physician: Dr. Leal(08/03/21 00:14) df1 Diagnosis - Sepsis, unspecified organism mh7 - Liver disease, unspecified - Possible abscesses mh7 - Hypokalemia 7 Forms: - Medication Reconciliation Form 7 - SBAR form 7 Signatures: Dispatcher [employer] EDMS Mary Mishra RN RN aa5 John Luo, CABLE FORMER-C CABLE FORMER-Cla1 Marcelle Valenzuela MD MD ma2 Chery Fontanez RN RN ap3 Do Garcia RN RN ll1 Missael Mistry MD MD mh7 Fany Leong df1 Corrections: (The following items were deleted from the chart) 08/02 18:04 18:04 Urine Test ordered. ma2 aa5 18:35 18:14 Accucheck ordered. aa5 iw 18:36 18:14 IV Saline Lock - Large Bore ordered. aa5 iw 18:42 18:15 Chest Single View+RAD.RAD.BRZ ordered. EDMS EDMS 20:18 19:35 Shoulder Left 2 View+RAD.RAD.BRZ ordered. EDMS EDMS 08/03 00:14 08/02 22:49 Dr. Leal mh7 df1
--- NOTE | 2021-08-02 22:50 | ER ---
Nurse's Notes [facility] Name: Maynor Saenz Age: 35 yrs Sex: Male : 1985 Arrival Date: 08/02/2021 Time: 17:55 Bed 7 Private MD: Diagnosis: Sepsis, unspecified organism;Liver disease, unspecified-Possible abscesses;Hypokalemia Presentation: 08/02 17:58 Chief complaint: Patient states: Syncope episode at home today. Very weak, lethargic, ll1 and SOB. States he knows mono for at least a month. Coronavirus screen: Vaccine status: Patient reports receiving the 2nd dose of the covid vaccine. Client denies travel out of the [place] in the last 14 days. cough unrelated to allergies, difficulty breathing, fatigue, headache, shortness of breath, Client presents with at least one sign or symptom that may indicate coronavirus-19. Ebola Screen: Patient denies travel to an Ebola-affected area in the 21 days before illness onset. Initial Sepsis Screen: Does the patient meet any 2 criteria? RR > 20 per min. No. Patient's initial sepsis screen is negative. Does the patient have a suspected source of infection? Yes: Other: mono. Risk Assessment: Do you want to hurt yourself or someone else? Patient reports no desire to harm self or others. Onset of symptoms was July 03, 2021. 17:58 Method Of Arrival: Wheelchair ll1 17:58 Acuity: TOH 2 ll1 Triage Assessment: 18:57 Respiratory: Onset: The symptoms/episode began/occurred gradually, the patient has ap3 moderate shortness of breath. Historical: - Allergies: 18:01 No Known Allergies; ll1 - Home Meds: 20:54 None [Active]; df1 - PMHx: 18:01 mono; ll1 - PSHx: 18:01 Cholecystectomy; ll1 - Immunization history:: Client reports receiving the 2nd dose of the Covid vaccine. - Social history:: Smoking status: Patient denies any tobacco usage or history of. - Family history:: not pertinent. Screenin:56 Abuse screen: Denies threats or abuse. Nutritional screening: patient has been ill for ap3 greater than 2 weeks. Tuberculosis screening: No symptoms or risk factors identified. Fall Risk No fall in past 12 months (0 pts). No secondary diagnosis (0 pts). IV access (20 points). Ambulatory Aid- None/Bed Rest/Nurse Assist (0 pts). Gait- Weak (10 pts.). Mental Status- Oriented to own ability (0 pts). Total Lee Fall Scale indicates Low Risk Score (25-44 pts). Fall prevention measures have been instituted. Side Rails Up X 2 Placed close to Nursing Station Frequent Obs/Assesments occuring. Assessment: 18:01 General: Appears distressed, Behavior is flat. Pain: Denies pain. Neuro: Level of ap3 Consciousness is lethargic, Oriented to person, place, Stylist Apprentice are weak bilaterally Weakness Gait is unsteady, Speech whisper. Neuro: Reports dizziness, a syncopal episode. Cardiovascular: Rhythm is sinus tachycardia. Cardiovascular: Capillary refill is sluggish in bilateral toes. Respiratory: Airway is patent Respiratory effort is labored, Breath sounds are diminished bilaterally. Derm: Skin is pale. 18:53 Reassessment: Patient and/or family updated on plan of care and expected duration. Pain ap3 level reassessed. Patient is alert, oriented x 3, equal unlabored respirations, skin warm/dry/pink. 20:36 Reassessment: Pt complain of potassium burning, decreased rate to 25 ml/hour. dc2 22:06 GI: Abdomen is flat, non-distended, Bowel sounds present X 4 quads. Abdomen is tender df1 to palpation X 4 quads. : No deficits noted. EENT: No deficits noted. Musculoskeletal: No deficits noted. Vital Signs: 17:58 Pulse 109; Resp 24; Temp 97.8; Pulse Ox 100% ; Weight 102.06 kg; Height 5 ft. 10 in. ll1 (177.80 cm); Pain 7/10; 18:01 BP 87 / 50; ll1 18:53 BP 111 / 68; Pulse 109; Resp 26; Pulse Ox 97% on 2 lpm NC; ap3 21:18 BP 100 / 54; Pulse 99; Resp 24; Temp 97.7(O); Pulse Ox 97% on 2 lpm NC; df1 17:58 Body Mass Index 32.28 (102.06 kg, 177.80 cm) ll1 ED Course: 17:55 Patient arrived in ED. as 18:01 Triage completed. ll1 18:01 Arm band placed on Patient placed in an exam room, on a stretcher. ll1 18:04 Marcelle Valenzuela MD is Attending Physician. ma2 18:12 Chery Fontanez, TALA is Primary Nurse. ap3 18:25 Inserted saline lock: 22 gauge in right antecubital area, using aseptic technique. aa5 18:25 Initial lab(s) drawn, by ED staff, sent to lab. First set of blood cultures drawn. aa5 Inserted saline lock: 22 gauge in left hand, using aseptic technique. 18:25 Second set of blood cultures drawn by me. iw 18:45 Chest Single View XRAY In Process Unspecified. EDMS 18:57 Patient has correct armband on for positive identification. Bed in low position. Call ap3 light in reach. Side rails up X2. Adult w/ patient. groundwater monitoring technician on. Pulse ox on. NIBP on. Door closed. Noise minimized. 19:03 Placed in gown. Warm blanket given. Pillow given. mh5 19:03 EKG done, by ED staff, reviewed by Marcelle Valenzuela MD. mh5 19:05 Attending Physician role handed off by Marcelle Valenzuela MD mh7 19:05 Missael Mistry MD is Attending Physician. mh7 19:11 Amylase, Serum Sent. aa5 19:11 Blood Culture Adult (2) Sent. aa5 19:48 COVID-19 SARS RT PCR (Document "Date of Onset" if Symptomatic) Sent. df1 19:48 CT Abd/Pelvis - IV Contrast Only Sent. df1 19:48 CT Head Brain wo Cont Sent. df1 19:48 CT Chest For PE Angio Sent. df1 19:[address] dc2 20:00 CT Abd/Pelvis - IV Contrast Only In Process Unspecified. EDMS 20:00 CT Head Brain wo Cont In Process Unspecified. EDMS 20:00 CT Chest For PE Angio In Process Unspecified. EDMS 20:13 Patient moved back from CT. dc2 21:37 Initiated transfer at [facility] with Jack Rodrigues. Stated she would do a capacity check tt3 and call back. 21:[address] [facility] with Agustín. Stated he would work on the case and call tt3 back with their phsycian. 22:03 [address]ustín with [facility] called back with their physician to speak with Dr. Mistry tt3 regarding the transfer request. 22:12 Jack Rodrigues called back with their physician to speak with Dr. Mistry regarding the tt3 transfer request. 22:35 Jack Rodrigues gave admin approval. The accepting physician is Dr. Leal. The pt is tt3 going to [facility], to [address] [place] [address]. Nurse to call report to . Face sheet faxed to per Jack's request. 08/03 00:13 No provider procedures requiring assistance completed. Patient transferred, IV remains df1 in place. Administered Medications: 08/02 18:33 Drug: NS 0.9% 1000 ml Route: IV; Rate: 1 bolus; Site: left antecubital; ap3 18:34 Drug: NS 0.9% 2000 ml Route: IV; Rate: 1 bolus; Site: right antecubital; ap3 18:50 Drug: Rocephin (cefTRIAXone) 1 grams Route: IV; Rate: calculated rate; Site: left ap3 antecubital; 21:45 Follow up: IV Status: Completed infusion df1 20:30 Drug: Tylenol 650 mg Route: PO; df1 21:44 Follow up: Response: Temperature is decreased df1 20:31 Drug: Potassium Chloride 20 mEq Route: IV; Rate: per protocol; Site: right antecubital; df1 21:44 Drug: vancoMYCIN 1 grams Route: IVPB; Infused Over: 2 hrs; Site: left antecubital; df1 08/03 00:12 Follow up: IV Status: Completed infusion; IV Intake: 200ml df1 00:12 Not Given (pt transferedd): Potassium Chloride 20 mEq IV at per protocol once; df1 administer over 1-2 hours Intake: 00:12 IV: 200ml; Total: 200ml. df1 Outcome: 08/02 22:49 ER care complete, transfer ordered by MD. madden 08/03 00:14 Transferred to [facility]. df1 Condition: stable Instructed on the need for transfer. 00:14 Patient left the ED. df1 Addendum: 08/10/2021 07:29 Addendum: Culture Results: Positive blood culture. called and spoke with Bethany lawson [facility]/ faxed over report to [phone]. Signatures: Dispatcher [employer] Regina Zapien Irene RN RN Mary Mishra RN RN 5 Bethany Putnam 5 Marcelle Valenzuela MD MD ma2 Chery Fontanez RN RN ap3 Bridgette Hamilton Lynsay, RN RN ll1 Missael Mistry MD MD 7 Marin Davis tt3 Fany Leong df1 Daniella Dey RN RN dc2 Corrections: (The following items were deleted from the chart) 08/02 22:45 21:37 Initiated transfer at [facility] with Alex Rodrigues. Stated she would do a capacity tt3 check and call back. tt3 45 22:12 Alex Rodrigues called back with their physician to speak with Dr. Mistry tt3 regarding the transfer request. tt3
[2021-08-03 00:57] VITALS: O2SAT 97
[2021-08-03 00:58] VITALS: BP 100/54; TEMP 97.7
--- NOTE | 2021-08-03 14:22 | EKG ---
Test Date: 2021-08-02 Test Time: 18:55:01 Cardiothoracic Physiotherapist: CARLEY MEASUREMENT RESULTS: Intervals: Rate: 109 NM: 158 QRSD: 94 QT: 386 QTc: 519 [place]: P: 43 NM: 158 QRS: 78 T: 44 INTERPRETIVE STATEMENTS: Sinus tachycardia Otherwise normal ECG No previous ECG available for comparison Electronically Signed On 08-03-21 14:21:29 CDT by Joey Schroeder
== END 2021-08-03 00:14 | disposition short-term general hospital (02) ==
LOC: ER 17:54
DX: A41.9 Sepsis, unspecified organism (principal); K76.9 Liver disease, unspecified; E87.6 Hypokalemia; Z20.822 Contact with and (suspected) exposure to COVID-19
CPT/HCPCS: 36415; 70450; 71045; 71275; 74177; 80048; 80076; 82150; 82550; 82553; 82947; 83605; 83690; 83735; 84145; 84484; 85025; 85610; 85730; 87040; 87077; 87186; 87205; 93005; 96365; 96366; 96375; 99285; J3370; J3480; J7030; J7040; J7050; Q9967; U0003